=== PATIENT | female | born 1980 | race Caucasian/White ===

== ENCOUNTER 2016-10-08 04:58 | Emergency (ER) | payer BC, MEDICAID, OTHER ==
[~2016-10-08] VITALS: Ht 154.9 cm; Wt 134.5 kg
[~2016-10-08 04:58] MED LIST: ACET-2047 PO; IBUP-1542 PO
[2016-10-08 05:03] VITALS: Ht 154.9 cm; Wt 134.5 kg
[2016-10-08 05:27] LABS: URINE BLOOD (Dip) POC 3+ (NEGATIVE)
[2016-10-08] MEDS ORDERED: PHEN-538 PO (05:36)
[2016-10-08] MEDS ORDERED: CIPR500T4 PO (05:36)
--- NOTE | 2016-10-08 05:46 | ERD ---
ER Documentation Chief Complaint Date/Time DATE: 10/08/16 TIME: 05:41 Chief Complaint painful urination x 1 week HPI 36 yo female presents here in the dysuria for 1 week, burning pain, 6/10 scale, denies hematuria or dysuria. denies abd pain, denies flank pain. denies nausea/ vomiting, denies vaginal itching and discharge. ROS All systems reviewed and are negative except as per history of present illness. Medications Home Meds Active Scripts Ciprofloxacin Hcl* (Ciprofloxacin Hcl*) 500 Mg Tablet, 500 MG PO BID for 7 Days , TAB Prov:ENA MOYA NP 10/08/16 Phenazopyridine Hcl* (Pyridium*) 200 Mg Tab, 200 MG PO TID Y for URINARY PAIN, # 6 TAB Prov:ENA MOYA INVERFORM MACHINE OPERATOR 10/08/16 Acetaminophen* (Acetaminophen*) 650 Mg Tablet, 650 MG PO Q6H Y for PAIN AND OR ELEVATED TEMP, #30 TAB Prov:SARAH CORADO PA-C 11/28/15 Ibuprofen* (Motrin*) 600 Mg Tab, 600 MG PO Q6, #30 TAB Prov:ANITA DOWD PA-C 11/02/15 Allergies Allergies: Coded Allergies: No Known Allergy (Unverified , 03/09/14) PMhx/Soc Medical and Surgical Hx: pt denies Medical Hx, pt denies Surgical Hx History of Surgery: No Anesthesia Reaction: No Hx Neurological Disorder: No Hx Respiratory Disorders: No Hx Cardiac Disorders: No Hx Psychiatric Problems: No Hx Miscellaneous Medical Probl: No Hx Alcohol Use: Yes (binge drinker on the weekends) Hx Substance Use: No Hx Tobacco Use: No Smoking Status: Never smoker FmHx Family History: No coronary disease, No diabetes, No other Physical Exam Vitals Vital Signs Date Time Temp Pulse Resp B/P Pulse Ox O2 Delivery O2 Flow Rate FiO2 10/08/16 05:03 98.2 83 20 143/70 100 Physical Exam GENERAL: The patient is well developed and appropriate for usual state of health, in no apparent distress. CHEST: Clear to auscultation bilaterally. There are no rales, wheezes or rhonchi. HEART: Regular rate and rhythm. No murmurs, clicks, rubs or gallops. No S3 or S4. ABDOMEN: Soft, nontender and nondistended. Good bowel sounds. No rebound or guarding. No gross peritonitis. No gross organomegaly or masses. No Chino sign or McBurney point tenderness. BACK: No midline or flank tenderness. EXTREMITIES: Equal pulses bilaterally. There is no peripheral clubbing, cyanosis or edema. No focal swelling or erythema. Full range of motion. Grossly neurovascularly intact. NEURO: Alert and oriented. Cranial nerves 2-12 intact. Motor strength in all 4 extremities with 5/5 strength. Sensation grossly intact. Normal speech and gait. SKIN: There is no apparent rash or petechia. The skin is warm and dry. HEMATOLOGIC AND LYMPHATIC: There is no evidence of excessive bruising or lymphedema. No gross cervical, axillary, or inguinal lymphadenopathy. Results 24 hrs Laboratory Tests Test 10/08/16 05:29 Bedside Urine pH (LAB) 6.0 Bedside Urine Protein (LAB) 1+ Bedside Urine Glucose (UA) Negative Bedside Urine Ketones (LAB) Negative Bedside Urine Blood 3+ Bedside Urine Nitrite (LAB) Negative Bedside Urine Leukocyte Esterase (L 2+ Procedures/MDM Medical Decision Making: Patients symptoms are consistent with urinary tract infection. There is low suspicion for pyelonephritis. There is low suspicion for abdominal emergencies at this time. Patients abdominal exam is normal. There is low suspicion for sepsis. Patient appears well and is hemodynamically stable. Disposition: Home. Stable Prescription ciprofloxacin, Pyridium. Instructions: Patient is advised to take medications as prescribed. Patient is advised to rest, increase fluid intake and do good perineal hygiene. Patient is advised that if symptoms are worse, severe abdominal pain, uncontrolled vomiting , high fever, severe flank pain, worst signs and symptoms, to return to the emergency department immediately. Otherwise, patient can follow up with primary care doctor in 5-7 days. Departure Diagnosis: Primary Impression: UTI (urinary tract infection) Urinary tract infection type: acute cystitis Hematuria presence: without hematuria Qualified Code: N30.00 - Acute cystitis without hematuria Condition: Stable Patient Instructions: Understanding Urinary Tract Infections (UTIs) ENA MOYA NP October 08, 2016 05:46
== END 2016-10-08 06:02 | disposition home or self-care (01) ==
LOC: FTE 04:58
DX: N30.00 Acute cystitis without hematuria (principal)
CPT/HCPCS: 81003; Z7502; 99283

== ENCOUNTER 2016-10-12 07:30 | Emergency (ER) | payer MEDICAID ==
[~2016-10-12] VITALS: Ht 162.6 cm; Wt 135.0 kg
[~2016-10-12 07:30] MED LIST changes: +CIPR500T4 PO; +PHEN-538 PO
[2016-10-12 07:32] VITALS: Ht 162.6 cm; Wt 135.0 kg
[2016-10-12] MEDS ORDERED: AMO500 PO (08:28)
--- NOTE | 2016-10-12 08:35 | ERD ---
ER Documentation Chief Complaint Date/Time DATE: 10/12/16 TIME: 08:30 Chief Complaint sore throat since last night HPI This is a 36-year-old female presenting to the emergency department for sore throat x 3 days. Patient states sore throat has been getting progressively worse. No cough, shortness of breath or difficulty breathing. No fevers or chills. No chest pain. No difficulty swallowing or drooling. No muffled voice. ROS All systems reviewed and are negative except as per history of present illness. Medications Home Meds Active Scripts Amoxicillin* (Amoxicillin*) 500 Mg Cap, 500 MG PO BID for 10 Days, CAP Prov:ARIEL TUCKER COFFEE GRINDER 10/12/16 Ciprofloxacin Hcl* (Ciprofloxacin Hcl*) 500 Mg Tablet, 500 MG PO BID for 7 Days , TAB Prov:ENA MOYA NP 10/08/16 Phenazopyridine Hcl* (Pyridium*) 200 Mg Tab, 200 MG PO TID Y for URINARY PAIN, # 6 TAB Prov:ENA MOYA COFFEE GRINDER 10/08/16 Acetaminophen* (Acetaminophen*) 650 Mg Tablet, 650 MG PO Q6H Y for PAIN AND OR ELEVATED TEMP, #30 TAB Prov:SARAH CORADO PA-C 11/28/15 Ibuprofen* (Motrin*) 600 Mg Tab, 600 MG PO Q6, #30 TAB Prov:ANITA DOWD PA-C 11/02/15 Allergies Allergies: Coded Allergies: No Known Allergy (Unverified , 10/12/16) PMhx/Soc Medical and Surgical Hx: pt denies Medical Hx, pt denies Surgical Hx History of Surgery: No Anesthesia Reaction: No Hx Neurological Disorder: No Hx Respiratory Disorders: No Hx Cardiac Disorders: No Hx Psychiatric Problems: No Hx Miscellaneous Medical Probl: Yes (uti) Hx Alcohol Use: Yes (binge drinker on the weekends) Hx Substance Use: No Hx Tobacco Use: No Smoking Status: Never smoker Physical Exam Vitals Vital Signs Date Time Temp Pulse Resp B/P Pulse Ox O2 Delivery O2 Flow Rate FiO2 10/12/16 07:32 98.6 97 18 179/94 99 Physical Exam Const: No acute distress, alert Head: Atraumatic Eyes: Normal Conjunctiva ENT: Normal External Ears, Nose and Mouth. Erythema and swelling of right tonsil. No exudate. Uvula is deviated to the left. Neck: Full range of motion..~ No meningismus. Painful cervical lymphadenopathy on palpation Resp: Clear to auscultation bilaterally. No wheezing, rhonchi or crackles. No stridor or labored breathing. Cardio: Regular rate and rhythm, no murmurs Abd: Soft, non tender, non distended. Normal bowel sounds Skin: No petechiae or rashes Back: No midline or flank tenderness Ext: No cyanosis, or edema Neur: Awake and alert Psych: Normal Mood and Affect Procedures/MDM MDM: 36-year-old female presents emergency department for sore throat 3 days. No difficulty swallowing or drooling. No cough, shortness of breath, difficulty breathing or chest pain. Patient has been taking ibuprofen at home with last dose last night. Patient is afebrile upon arrival to ED. Center score to and recommendations are optional rapid strep test and/or culture. A rapid strep test was ordered. Strep swab was positive for strep pharyngitis. Oxygen saturation 99% on room air. Patient is talking in complete sentences. No muffled voice, drooling or difficulty swallowing. Differential diagnosis includes but not limited to strep pharyngitis, pneumonia , viral pharyngitis, influenza, coxsackievirus, herpes simplex virus, Shaw- Carpenter virus, Respiratory syncytial virus and otitis media. Low suspicion for epiglottitis. Patient likely has strep pharyngitis. Patient is appropriate for outpatient management and will be discharged with prescription for Amoxicillin. Instructed patient to follow up with primary care provider in the next 2-3 days for reassessment.Return to ED for any high fever, chest pain, difficulty breathing, shortness breath, wheezing, vomiting, diarrhea , abdominal pain or any new or worsening symptoms. Patient verbalizes understanding. All questions answered at discharge. Departure Diagnosis: Primary Impression: Strep pharyngitis Condition: Stable Patient Instructions: Pharyngitis, Strep (Confirmed) Referrals: COMM[facility]ITY CLIN[facility] YOU HAVE RECEIVED A MEDICAL SCREENING EXAM AND THE RESULTS INDICATE THAT YOU DO NOT HAVE A CONDITION THAT REQUIRES URGENT TREATMENT IN THE EMERGENCY DEPARTMENT. FURTHER EVALUATION AND TREATMENT OF YOUR CONDITION CAN WAIT UNTIL YOU ARE SEEN IN YOUR DOCTORS OFFICE WITHIN THE NEXT 1-2 DAYS. IT IS YOUR RESPONSIBILITY TO MAKE AN APPOINTMENT FOR FOLOW-UP CARE. IF YOU HAVE A PRIMARY DOCTOR --you should call your primary doctor and schedule an appointment IF YOU DO NOT HAVE A PRIMARY DOCTOR YOU CAN CALL OUR PHYSICIAN REFERRAL HOTLINE AT IF YOU CAN NOT AFFORD TO SEE A PHYSICIAN YOU CAN CHOSE FROM THE FOLLOWING [facility] [address] [facility] [address] [facility] [address] [facility] [address] [facility] [address] [facility]. [facility] [address] [facility]. [facility] YOU HAVE RECEIVED A MEDICAL SCREENING EXAM AND THE RESULTS INDICATE THAT YOU DO NOT HAVE A CONDITION THAT REQUIRES URGENT TREATMENT IN THE EMERGENCY DEPARTMENT. FURTHER EVALUATION AND TREATMENT OF YOUR CONDITION CAN WAIT UNTIL YOU ARE SEEN IN YOUR DOCTORS OFFICE WITHIN THE NEXT 1-2 DAYS. IT IS YOUR RESPONSIBILITY TO MAKE AN APPOINTMENT FOR FOLOW-UP CARE. IF YOU HAVE A PRIMARY DOCTOR --you should call your primary doctor and schedule and appointment IF YOU DO NOT HAVE A PRIMARY DOCTOR YOU CAN CALL OUR PHYSICIAN REFERRAL HOTLINE AT . IF YOU CAN NOT AFFORD TO SEE A PHYSICIAN YOU CAN CHOSE FROM THE FOLLOWING [facility]: [facility] [address] [place] [address] [facility] [address] [place] [address] [facility] [address] [place] [address] Additional Instructions: Call your primary care doctor TOMORROW for an appointment during the next 2-3 days.See the doctor sooner or return here if your condition worsens before your appointment time. Return to ED for any high fever, chest pain, difficulty breathing, shortness breath, wheezing, vomiting, diarrhea, abdominal pain or any new or worsening symptoms. ARIEL TUCKER NP Oct 12, 2016 08:35
== END 2016-10-12 08:34 | disposition home or self-care (01) ==
LOC: FTE 07:30
DX: J02.0 Streptococcal pharyngitis (principal)
CPT/HCPCS: 87880; 99283

== ENCOUNTER 2018-03-26 01:45 | Emergency (ER) | END 2018-03-26 05:59 | disposition home or self-care (01) ==